=== PATIENT | female | born 1990 | race Caucasian/White ===

== ENCOUNTER 2018-07-14 13:36 | Outpatient (CLI) | payer OTHER | END 2018-07-14 16:50 | disposition home or self-care (01) | LOC: OBT 13:36 → L-D 13:37 → OBT 16:50 | DX: O26.893 Other specified pregnancy related conditions, third trimester (principal); Z3A.38 38 weeks gestation of pregnancy; R10.2 Pelvic and perineal pain | CPT/HCPCS: 76815; 76818 ==

== ENCOUNTER 2018-07-24 09:30 | Inpatient (IN) | payer OTHER ==
[2018-07-24] MEDS: ONDANSETRON 4 MG INJ IV ×2 (09:59→19:17)
[2018-07-24] MEDS ORDERED: CARBOPROST 250 MCG INJ IM ×2 (10:00→16:30)
[2018-07-24] MEDS ORDERED: MISOPROSTOL 200 MCG TAB PR ×2 (10:00→16:30)
[2018-07-24] MEDS ORDERED: METHYLERGONOVINE 0.2 MG INJ IM ×2 (10:00→16:30)
[2018-07-24] MEDS ORDERED: CEFAZOLIN 2 GM/50 ML (PMX) 50 ML IVPB (10:00)
[2018-07-24] MEDS ORDERED: OXYTOCIN 30 UNITS/LR 500 ML IV ×3 (10:00→16:30)
[2018-07-24] MEDS: FAMOTIDINE 20 MG INJ IV (10:00)
[2018-07-24] MEDS: METOCLOPRAMIDE 10 MG INJ IV (10:00)
[2018-07-24] MEDS: LACTATED RINGER'S 1,000 ML IV (10:11)
[2018-07-24 10:17] LABS: ADD MAN DIFF? NO
[2018-07-24 10:23] LABS: WHITE BLOOD COUNT 8.9 10^3/ul (4.8-10.8)
[2018-07-24 10:23] LABS: BASOPHILS % 0.3 % (0.0-2.0); EOSINOPHILS # 0.1 10^3/ul (0.0-0.5); EOSINOPHILS % 0.6 % (0.0-7.0); HEMATOCRIT 40.5 % (37.0-47.0); HEMOGLOBIN 13.8 g/dl (12.0-16.0); LYMPHOCYTES # 1.6 10^3/ul (0.8-2.9); LYMPHOCYTES % 17.5 % (15.0-51.0); MEAN CORPUSCULAR HEMOGLOBIN 31.2 pg (29.0-33.0); MEAN CORPUSCULAR HGB CONC 34.1 g/dl (32.0-37.0); MEAN CORPUSCULAR VOLUME 91.4 fl (82.0-101.0); MEAN PLATELET VOLUME 12.9 fl (7.4-10.4); MONOCYTE # 0.8 10^3/ul (0.3-0.9); MONOCYTES % 8.8 % (0.0-11.0); NEUTROPHIL # 6.4 10^3/ul (1.6-7.5); NEUTROPHILS % 71.8 % (39.0-77.0); PLATELET COUNT 172 10^3/UL (140-415); RED BLOOD COUNT 4.43 10^6/ul (4.20-5.40); RED CELL DISTRIBUTION WIDTH 12.8 % (11.5-14.5)
[2018-07-24 10:43] LABS: INR 0.89; PARTIAL THROMBOPLASTIN TIME 22.2 Sec (23.0-35.0); PROTIME 12.1 Sec (11.9-14.9); PT RATIO 0.9
[2018-07-24] MEDS ORDERED: EPHEDrine SULFATE 50 MG/5 ML SYG (12:41)
[2018-07-24] MEDS ORDERED: METOCLOPRAMIDE 10 MG INJ (12:42)
[2018-07-24] MEDS ORDERED: ONDANSETRON 4 MG INJ (12:42)
[2018-07-24] MEDS ORDERED: morphine SULFATE/PF (10 MG/10 ML) INJ (12:42)
[2018-07-24] MEDS ORDERED: OXYTOCIN 10 UNIT INJ ×3 (12:43→13:30)
[2018-07-24] MEDS ORDERED: MEPERIDINE 100 MG INJ (13:23)
[2018-07-24] MEDS ORDERED: EPHEDrine SULFATE 50 MG/5 ML SYG IV (14:30)
[2018-07-24] MEDS ORDERED: NALOXONE (0.4 MG/ML) INJ IV (14:30)
[2018-07-24] MEDS ORDERED: DIPHENHYDRAMINE 50 MG INJ IV (14:30)
[2018-07-24] MEDS ORDERED: morphine 2 MG INJ IV ×2 (14:30)
[2018-07-24] MEDS: OXYTOCIN 30 UNITS/LR 500 ML IV ×4 (14:53→23:45)
[2018-07-24 15:13] LABS: RAPID PLASMA REAGIN NONREACTIVE (NR)
[2018-07-24] MEDS: KETOROLAC 30 MG INJ IV (15:34)
[2018-07-24] MEDS: morphine SULFATE/PF (10 MG/10 ML) INJ SPINAL (16:20)
[2018-07-24] MEDS ORDERED: LANOLIN 7 GM TUBE TOP (16:30)
[2018-07-24] MEDS ORDERED: OXYCODONE/ACETAMINOPHEN (5/325) TAB PO ×2 (16:30)
[2018-07-24] MEDS: IBUPROFEN 600 MG TAB PO (16:58)
[2018-07-24] MEDS ORDERED: LACTATED RINGER'S 1,000 ML IV (20:00)
[2018-07-24] MEDS: CEFAZOLIN 1 GM/50 ML (PMX) 50 ML IVPB (21:07)
[2018-07-24 22:12] LABS: HEPATITIS B SURFACE ANTIGEN NEGATIVE (NEGATIVE)
[2018-07-25] MEDS: OXYTOCIN 30 UNITS/LR 500 ML IV ×4 (03:37→16:04)
[2018-07-25] MEDS: IBUPROFEN 600 MG TAB PO ×4 (06:00→17:07)
[2018-07-25] MEDS: LACTATED RINGER'S 1,000 ML IV (07:50)
[2018-07-25 08:09] LABS: ADD MAN DIFF? NO
[2018-07-25 08:13] LABS: BASOPHILS % 0.4 % (0.0-2.0); EOSINOPHILS # 0.1 10^3/ul (0.0-0.5); EOSINOPHILS % 0.6 % (0.0-7.0); HEMATOCRIT 34.8 % (37.0-47.0); HEMOGLOBIN 11.9 g/dl (12.0-16.0); LYMPHOCYTES # 1.4 10^3/ul (0.8-2.9); LYMPHOCYTES % 13.9 % (15.0-51.0); MEAN CORPUSCULAR HEMOGLOBIN 31.6 pg (29.0-33.0); MEAN CORPUSCULAR HGB CONC 34.2 g/dl (32.0-37.0); MEAN CORPUSCULAR VOLUME 92.6 fl (82.0-101.0); MEAN PLATELET VOLUME 12.7 fl (7.4-10.4); MONOCYTES % 9.7 % (0.0-11.0); NEUTROPHIL # 7.3 10^3/ul (1.6-7.5); NEUTROPHILS % 74.8 % (39.0-77.0); PLATELET COUNT 142 10^3/UL (140-415); RED BLOOD COUNT 3.76 10^6/ul (4.20-5.40)
[2018-07-25 08:13] LABS: WHITE BLOOD COUNT 9.8 10^3/ul (4.8-10.8)
[2018-07-25] MEDS: SENNA/DOCUSATE NA (8.6MG/50MG) TAB PO ×2 (09:41→21:00)
[2018-07-25] MEDS: KETOROLAC 30 MG INJ IV (10:01)
[2018-07-25 10:56] LABS: RHOGAM PROFILE 1 1
[2018-07-26] MEDS: IBUPROFEN 600 MG TAB PO ×5 (00:12→23:43)
[2018-07-26] MEDS: SENNA/DOCUSATE NA (8.6MG/50MG) TAB PO ×2 (09:00→21:00)
[2018-07-26] MEDS: HYDROCODONE/APAP (5/325) TAB PO ×2 (12:54→17:24)
[2018-07-27] MEDS: HYDROCODONE/APAP (5/325) TAB PO ×2 (01:09→10:49)
[2018-07-27] MEDS: IBUPROFEN 600 MG TAB PO ×2 (05:40→12:28)
[2018-07-27] MEDS: DIPHTH/TET/ACEL PERTUSS (ADULT) 0.5 ML VIAL IM* (09:00)
[2018-07-27] MEDS: SENNA/DOCUSATE NA (8.6MG/50MG) TAB PO (09:00)
== END 2018-07-27 16:58 | disposition home or self-care (01) | DRG 788 ==
LOC: L-D 09:30 → PP1 16:01
PROVIDERS: Obstetrics & Gynecology
PROC: 10D00Z1 Extraction of Products of Conception, Low, Open Approach (ICD-10-PCS; principal; 2018-07-24 12:30)
PROC: 3E033VJ Introduction of Other Hormone into Peripheral Vein, Percutaneous Approach (ICD-10-PCS; 2018-07-24 12:30)
DX: O34.211 Maternal care for low transverse scar from previous cesarean delivery (principal); Z3A.39 39 weeks gestation of pregnancy; Z37.0 Single live birth
CPT/HCPCS: 85025; 85610; 85730; 86592; 86850; 86885; 86900; 86901; 87340; 99464